=== PATIENT | female | born 1945 | race Caucasian/White ===

== ENCOUNTER 2021-07-26 13:28 | Emergency (ER) | payer MEDICARE, SELFPAY ==
--- NOTE | ~2021-07-26 | CT_ITS ---
EXAMINATION: CT brain wo con DATE: 07/26/2021 15:05 INDICATION: Head injury. Loss of consciousness. TECHNIQUE: Computed tomography (CT) of the head was performed without intravenous contrast. The mA wa s adjusted according to patient size. Iterative reconstruction technique was employed. The dose-lengt h product was 605.33 mGy-cm. COMPARISON: None FINDINGS: There is no intracranial hemorrhage, acute infarction, or abnormal intracranial mass lesion . There are scattered areas of low attenuation in the cerebral white matter, which is within normal l imits for the patient's age. The ventricles are normal in size. The paranasal sinuses are clear. The orbits are normal. The mastoid air cells are normal. IMPRESSION: 1. Normal aging brain. Reviewed, dictated and finalized at location A. SSMENT RN IMPRESSION: 1. Normal aging brain.
--- NOTE | ~2021-07-26 | CT_ITS ---
EXAMINATION: CT abdomen pelvis w con DATE: 07/26/2021 15:05 INDICATION: Fall. Loss of consciousness. TECHNIQUE: Computed tomography (CT) of the abdomen and pelvis was performed with 100 cc Omnipaque 350 intravenous contrast. Automated exposure control and iterative reconstruction technique were employe d. Exam dose: 737.30 mGy-cm total exam DLP. COMPARISON: None. FINDINGS: Patchy atelectasis and/or fibrotic change throughout the lower lung zones. Normal heart size. No pericardial or pleural effusion. Hepatic steatosis. 11 mm lateral segment left hepatic cyst. Much smaller lateral segment left hepatic cyst is noted as well. The gallbladder is absent which likely accounts for mild prominence of the bile ducts. 5 mm upper pole right renal cyst. Pinpoint nonobstructing lower pole right renal calculus. No other urinary tract calculus or hydrouret eronephrosis is detected. The urinary bladder is unremarkable. Status post hysterectomy. There is calcification but no aneurysm of the abdominal aorta. No intraperitoneal or retroperitoneal or pelvic mass lesion or adenopathy or ascites is detected. Status post gastric bypass surgery. No bowel obstruction, bowel wall thickening, pneumatosis or intraperitoneal free air is evident. Small fat-containing umbilical hernia. Bilateral hip osteoarthritis. Severe degenerative disease at T12-L1 and L1-L2. Fusion at the L5-S1 interspace. IMPRESSION: Left hepatic cysts, 5 mm upper pole right renal cyst Pinpoint obstructing lower pole right renal calculus Status post cholecystectomy Status post gastric bypass surgery Status post hysterectomy Reviewed, dictated and finalized at Location A. Reviewed, dictated and finalized at location B. L EXAMINER
--- NOTE | ~2021-07-26 | CT_ITS ---
EXAMINATION: CT cervical spine wo con DATE: 07/26/2021 15:06 INDICATION: Head injury. TECHNIQUE: Computed tomography (CT) of the cervical spine was performed without intravenous contrast. Automated exposure control and iterative reconstruction technique were employed. The dose-length pro duct was 200.15 mGy-cm. COMPARISON: None FINDINGS: The visualized portions of the lung apices demonstrate groundglass opacities and septal thi ckening and areas of air trapping, likely chronic lung disease. There is 7 degrees levocurvature of c ervical spine. Vertebral body heights are normal. There is severely decreased disc height from C3-C4 through C6-C7. The following disc levels are specifically discussed: C2-C3: There is no uncovertebral joint osteoarthritis. There is moderate right and severe left facet joint osteoarthritis. There is mild left neural foraminal stenosis. There is no central canal stenosi s. C3-C4: There is severe bilateral uncovertebral joint osteoarthritis. There is severe bilateral facet joint osteoarthritis. There is mild bilateral neural foraminal stenosis. There is mild central canal stenosis. C4-C5: There is severe bilateral uncovertebral joint osteoarthritis. There is severe bilateral facet joint osteoarthritis. There is moderate right and mild left neural foraminal stenosis. There is mild central canal stenosis. C5-C6: There is severe bilateral uncovertebral joint osteoarthritis. There is severe right and modera te left facet joint osteoarthritis. There is mild lateral neural foraminal stenosis. There is mild ce ntral canal stenosis. C6-C7: There is severe bilateral uncovertebral joint osteoarthritis. There is mild bilateral facet noah int osteoarthritis. There is moderate right and mild left neural foraminal stenosis. There is mild ce ntral canal stenosis. C7-T1: There is no uncovertebral joint osteoarthritis. There is severe bilateral facet joint osteoart hritis. There is mild bilateral neural foraminal stenosis. There is no central canal stenosis. IMPRESSION: 1. No fracture. 2. Severe cervical spondylosis. Reviewed, dictated and finalized at location A. CAL STAFF SPECIALIST
--- NOTE | ~2021-07-26 | XR_ITS ---
XR sacrum coccyx min 2V DATE: 07/26/2021 15:26 INDICATION: Fall. Tailbone pain. TECHNIQUE: AP, angled AP and lateral views COMPARISON: 07/26/2021 CT abdomen pelvis FINDINGS: There is fusion at the L5-S1 disc space. Diffuse osteopenia. No sacral or coccygeal fracture or bone destruction is detected. Bilateral hip osteoarthritis. IMPRESSION: No sacral or coccygeal fracture Osteopenia Bilateral hip osteophytes Fusion at L5-S1 disc space Reviewed, dictated and finalized at location B. AG STITCHER
--- NOTE | ~2021-07-26 | XR_ITS ---
XR chest 2V 07/26/2021 15:26 Indication: Chest pain Procedure: 2 view chest Comparison: No prior studies for comparison. Findings: There are interstitial changes in the lung bases, likely interstitial fibrosis. Heart size normal. No acute focal pneumonia, edema, pleural effusion or pneumothorax. No acute osseous abnormali ty. Impression: 1: Coarse interstitial changes of the lung bases are likely secondary to chronic fibrosis. Reviewed, dictated and finalized at location A. RVISOR RESIDENTIAL Impression: 1: Coarse interstitial changes of the lung bases are likely secondary to chroni c fibrosis.
--- NOTE | ~2021-07-26 | XR_ITS ---
XR shoulder LT min 2V DATE: 07/26/2021 15:25 INDICATION: Fall in shower. Left neck and shoulder pain TECHNIQUE: 4 views COMPARISON: None FINDINGS: There is diffuse osteopenia. No fracture or dislocation, periosteal reaction or bone destruction or abnormal soft tissue calcifica tion of the left shoulder. Mild glenohumeral osteoarthritis. Degenerative spurring of the thoracic spine. IMPRESSION: Osteopenia Mild left glenohumeral osteoarthritis No fracture or dislocation of left shoulder Reviewed, dictated and finalized at location B. ER INFORMATION SPECIALIST
[2021-07-26 13:32] VITALS: BP 111/90; PULSE 81; RESP 20; TEMP 36.6; O2SAT 98
[2021-07-26 14:29] LABS: Basophils Absolute Auto 0.1 K/mm3 (0.0-0.1); Basophils Percent Auto 0.7 % (0.2-1.2); Eosinophils Absolute Auto 0.1 K/mm3 (0-0.3); Eosinophils Percent Auto 1.8 % (0-4.4); Hematocrit 39.2 % (37.0-47.0); Hemoglobin 13.5 g/dL (12.0-15.0); Immature Granulocyte Absolute 0.02 K/mm3 (0.00-0.031); Immature Granulocyte Percent A 0.3 % (0-0.5); Lymphocytes Absolute Auto 2.67 K/mm3 (0.9-3.2); Mean Corpuscular HGB Conc 34.4 g/dl (32-36); Mean Corpuscular Hemoglobin 33.3 pg (26-34); Mean Corpuscular Volume 96.8 fl (80-100); Monocytes Absolute Auto 0.5 K/mm3 (0.1-0.6); Monocytes Percent Auto 6.5 % (2.6-8.5); Neutrophils Absolute Auto 3.9 K/mm3 (1.3-6.7); Neutrophils Percent Auto 53.7 % (45.5-73.1); Platelet Count Result 156 k/mm3 (150-375); Red Blood Count 4.05 M/mm3 (4.2-5.4); Red Cell Distribution Width 12.2 % (11.5-14.5); White Blood Count 7.2 K/mm3 (4.5-10.0)
[2021-07-26 14:40] LABS: Alanine Aminotransferase 25 U/L (4-35); Albumin Level 4.3 g/dL (3.5-5.1); Alkaline Phosphatase 128 U/L (38-126); Anion Gap 8 mmol/L (8-16); Aspartate Amino Transferase 32 U/L (14-36); Bilirubin,Total 0.7 mg/dL (0.2-1.3); Blood Urea Nitrogen 15 mg/dL (7-17); Calcium 9.2 mg/dL (8.4-10.2); Carbon Dioxide 26 mmol/L (22-30); Chloride 101 mmol/L (98-107); Estimated CRCL calculation 67 ml/min; Estimated Glomerular Filt Rate > 60; Glucose 89 mg/dL (65-110); Sodium 135 mmol/L (137-145)
--- NOTE | 2021-07-26 15:42 | ED.GENADULT ---
HPI - General Adult General Chief complaint: Fall Stated complaint: Fall, Headache Time Seen by Provider: 07/26/21 13:48 Source: RN notes reviewed History of Present Illness HPI narrative: Patient presents emergency department from home for fall. Patient states last night she was at a friend's house when she gone to the restroom she states in the bathroom she had a large rock that she slipped out and she fell she states she landed into the bathtub pulling down the shower curtain and struck her head she states that she is unsure if she lost consciousness she states since that time she had left posterior head pain as well as pain all down the left side of her body in her left shoulder and her left lower back into her coccyx states she has been able to get up and ambulate she denies any vision changes numbness or tingling in extremities chest pain shortness of breath abdominal pain nausea vomiting or any other symptom Related Data Allergies Allergy/AdvReac Type Severity Reaction Status Date / Time codeine Allergy Seizure Verified 07/26/21 13:47 Sulfa (Sulfonamide Allergy Rash Verified 07/26/21 13:47 Antibiotics) Review of Systems Review of Systems: Gen.: Denies fevers or chills Eyes: Denies eye pain or visual change ENT: Denies congestion Respiratory: Denies shortness of breath or cough CV: Denies chest pain or palpitations GI: Denies abdominal pain nausea, emesis or diarrhea Musculoskeletal: See HPI Neuro: Reports headache and possible loss of consciousness Skin: Denies rash Except as documented, all other systems reviewed and negative [facility] Past Medical History Medical History (Updated 07/26/21 @ 15:46 by Quinton Gentile DO) Patient denies significant medical history Social History Social History (Updated 07/26/21 @ 15:43 by Quinton Gentile DO) Smoking status: Never smoker Exam Narrative: APPEARANCE: No acute distress, nontoxic, resting in bed EYES: EOMI, PERRL HEENT: Normocephalic, tender palpation of the left posterior scalp with mild swelling present no facial tenderness, nares patent Neck supple no midline tender palpation mild tenderness palpation left paravertebral muscles C5-7 RESPIRATORY: No respiratory distress Clear to auscultation bilaterally with no rhonchi wheezing or rales. CARDIOVASCULAR: Regular rate and rhythm without murmurs rubs or gallops. ABDOMINAL: Soft, nondistended tender palpation left upper quadrant left lower quadrant no tenderness right upper quadrant right lower quadrant no rebound or guarding MUSCULOSKELETAl: Moves all extremities. No clubbing, cyanosis or edema. Tender palpation of the left anterior and lateral shoulder full range of motion without pain no tenderness left elbow or wrist neurovascular intact Back no midline thoracic lumbar tenderness palpation tender palpation of the left paravertebral muscles L2-5/tenderness over the coccyx region NEURO: Awake and alert x 4. Following commands, speech normal, no focal deficits SKIN:: Warm, dry. No rashes lesions or abrasions PSYCHIATRIC: Normal affect/mood, Course Course Emergency Course: Discussed with patient results of workup and diagnosis. Discussed need for follow-up with primary care, proper use of medication, and reasons to return to the emergency department. Patient understands and agrees to current treatment plan Vital Signs Vital signs: Vital Signs Temperature 97.8 F 07/26/21 13:32 Pulse Rate 81 07/26/21 13:32 Respiratory Rate 20 07/26/21 13:32 Blood Pressure 111/90 07/26/21 13:32 Pulse Oximetry 98 07/26/21 13:32 Temperature 97.8 F 07/26/21 13:32 Pulse Rate 81 07/26/21 13:32 Respiratory Rate 20 07/26/21 13:32 Blood Pressure 111/90 07/26/21 13:32 Pulse Oximetry 98 07/26/21 13:32 Medical Decision Making Vital Signs Vital Signs: Vital Signs Temperature 97.8 F 07/26/21 13:32 Pulse Rate 81 07/26/21 13:32 Respiratory Rate 20 07/26/21 13:32 Blood Pressure 111/90 12
[2021-07-26 16:00] VITALS: BP 120/80; PULSE 77; RESP 19; O2SAT 97
== END 2021-07-26 16:00 | disposition home or self-care (01) ==
PROVIDERS: Emergency Provider Emergency Medicine
DX: S00.93XA Contusion of unspecified part of head, initial encounter (principal); S40.012A Contusion of left shoulder, initial encounter; S30.0XXA Contusion of lower back and pelvis, initial encounter; Z98.84 Bariatric surgery status; M47.812 Spondylosis without myelopathy or radiculopathy, cervical region; M19.012 Primary osteoarthritis, left shoulder; W01.198A Fall on same level from slipping, tripping and stumbling with subsequent striking against other object, initial encounter
CPT/HCPCS: 36415; 70450; 71046; 72125; 72220; 73030; 74177; 80053; 85025; 99284; Q9967

== ENCOUNTER 2022-09-08 17:57 | Emergency (ER) | payer MEDICARE, SELFPAY ==
[2022-09-08] VITALS (8 sets, daily range): BP systolic 182–205; BP diastolic 69–96; PULSE 57–66; RESP 12–21; TEMP 36.7; O2SAT 96–100
--- NOTE | ~2022-09-08 | CT_ITS ---
Non-contrast Head CT History: Vertigo, headache COMPARISON: 07/26/2021 Technique: Axial non-contrast imaging of the brain was performed. Dose reduction technique was used on this scan by utilizing automated exposure control and iterative reconstruction technique. The dose -length product (DLP) was 529.67 mGy-cm. Findings: There is no evidence of intracranial hemorrhage, mass lesion, or acute infarct. Brain par enchyma appears normal. The ventricles and subarachnoid spaces are normal in size. The calvarium ap pears normal. The visualized paranasal sinuses and mastoid air cells are clear. Impression: No significant abnormality seen. Reviewed, dictated and finalized at location . RVISOR MALTED MILK Impression: No significant abnormality seen.
--- NOTE | 2022-09-08 18:02 | ED.DIZZY ---
HPI - Dizziness General Chief Complaint: Dizziness Stated Complaint: NAUSEA/VOMITING/DIZZINESS X 6 HOURS Source: patient Mode of arrival: EMS Limitations: no limitations History of Present Illness HPI Narrative: Patient is a 77 y/o female who presents to the ED via EMS with report of dizziness. Patient reports she received the shingles vaccine yesterday and felt slight dizziness temporarily afterwards. She developed dizziness again around 12pm today which has been present since then. She describes the dizziness as though the room is spinning. Dizziness worse with opening eyes and laying flat. She also reports having nausea and vomiting associated with the dizziness. She did have a headache earlier which was resolved with Aleve. Denies any vision changes. Denies focal weakness. Denies chest pain, difficulty breathing, abdominal pain, ear pain or ringing, previous history of similar dizziness. Denies any fever, rash, itching after receiving vaccine. Related Data Allergies Allergy/AdvReac Type Severity Reaction Status Date / Time codeine Allergy Seizure Verified 09/08/22 18:04 Sulfa (Sulfonamide Allergy Rash Verified 09/08/22 18:04 Antibiotics) Review of Systems Review of Systems: CONSTITUTIONAL: Denies fever, chills, or sweats. EYES: Denies visual changes. ENT: Denies rhinorrhea, congestion, sore throat, tinnitus, or otalgia. CARDIOVASCULAR: Denies chest pain. RESPIRATORY: Denies dyspnea. GASTROINTESTINAL: See HPI. GENITOURINARY: Denies dysuria or hematuria. SKIN: Denies rash or itching. MUSCULOSKELETAL: Denies back pain, joint pain, or myalgia. NEUROLOGIC: See HPI. All systems reviewed & are unremarkable except as noted in HPI and below PMFSH Past Medical History Medical History (Updated 09/08/22 @ 23:35 by Clair Jack PA-C) HTN (hypertension) Surgical History Surgical History (Updated 09/08/22 @ 18:03 by Clair Jack PA-C) No pertinent past surgical history Social History Social History Smoking status: Never smoker Exam Narrative: GENERAL: Mildly ill appearing, well-nourished, non-toxic, in mild acute distress due to dizziness and vomiting. HEAD: Normocephalic, atraumatic. EYES: PERRL/EOMI, conjunctivae clear bilaterally. No nystagmus. EARS: L TM clear, with good light reflex. No erythema or bulging. R cerumen impaction. NECK: Supple. No adenopathy, no masses. RESPIRATORY: Airway patent, respirations nonlabored. Clear to auscultation bilaterally, no rales, rhonchi, wheezing. CARDIOVASCULAR: Regular rate and rhythm without murmurs, rubs, or gallops. Radial pulses 2+ and equal bilaterally. ABDOMINAL: Soft, nontender, nondistended, no hepatosplenomegaly. Normoactive BS. MUSCULOSKELETAL: Moves all extremities. Strength/ROM intact without gross deformities or TTP. No edema. No calf tenderness. SKIN: Warm, dry, normal color. No rashes. NEURO: A&O X3. Speech clear. Follows commands. CN II-XII intact. Sensation grossly intact. No ataxic movements. Strength 5/5 in upper and lower extremities bilaterally. No pronator drift. Equal custom dressmaker strength bilaterally. PSYCHIATRIC: Appropriate mood and affect. Normal interaction. Course Vital Signs Vital signs: Vital Signs Temperature 98.1 F 09/08/22 17:57 Pulse Rate 63 09/08/22 17:57 Respiratory Rate 20 09/08/22 17:57 Blood Pressure 182/69 H 09/08/22 17:57 Pulse Oximetry 100 09/08/22 17:57 Oxygen Delivery Room Air 09/08/22 17:57 Temperature 98.1 F 09/08/22 17:57 Pulse Rate 66 09/08/22 23:25 Respiratory Rate 14 09/08/22 23:25 Blood Pressure 189/96 H 09/08/22 23:25 Pulse Oximetry 96 09/08/22 23:25 Oxygen Delivery Room Air 09/08/22 17:57 MDM - Dizziness MDM Narrative Medical decision making narrative: Patient presented to ED with several hour onset of room spinning dizziness. Patient actively vomiting upon my initial evaluation. Mildly hyper
--- NOTE | 2022-09-08 18:03 | ECG_ITS ---
Measurements Intervals [place] Rate: 60 P: 14 IN: 152 QRS: -20 QRSD: 98 T: 13 QT: 413 QTc: 415 Interpretive Statements SINUS RHYTHM LEFT VENTRICULAR HYPERTROPHY AND ST-T CHANGE [VOLTAGE CRITERIA PLUS ST/T ABNORMALITY] ABNORMAL ECG NO PREVIOUS ECG AVAILABLE FOR COMPARISON Electronically Signed On 09-09-2022 11:59:08 NURSE STAFF [facility] by Baron Ahmadi M.D.
[2022-09-08] MEDS: ONDANSETRON INJ 4 MG/2 ML VIAL IV PUSH (19:00)
[2022-09-08] MEDS: SODIUM CHLORIDE 0.9% IV 1,000 ML 999 ML IV CONT (19:00)
[2022-09-08] MEDS: MECLIZINE HCL 25 MG TABLET PO (19:27)
[2022-09-08 20:19] LABS: Basophils Absolute Auto 0.1 K/mm3 (0.0-0.1); Basophils Percent Auto 0.6 % (0.2-1.2); Eosinophils Percent Auto 0.4 % (0-4.4); Hematocrit 36.7 % (37.0-47.0); Hemoglobin 12.7 g/dL (12.0-15.0); Immature Granulocyte Absolute 0.03 K/mm3 (0.00-0.031); Immature Granulocyte Percent A 0.4 % (0-0.5); Immature Platelet Fraction Pct 14.1 % (0.9-11.2); Lymphocytes Absolute Auto 1.25 K/mm3 (0.9-3.2); Lymphocytes Percent Auto 14.9 % (18.3-44.2); Mean Corpuscular HGB Conc 34.6 g/dl (32-36); Mean Corpuscular Hemoglobin 33.7 pg (26-34); Mean Corpuscular Volume 97.3 fl (80-100); Monocytes Absolute Auto 0.3 K/mm3 (0.1-0.6); Monocytes Percent Auto 3.1 % (2.6-8.5); Neutrophils Absolute Auto 6.8 K/mm3 (1.3-6.7); Neutrophils Percent Auto 80.6 % (45.5-73.1); Platelet Count Result 108 k/mm3 (150-375); Red Blood Count 3.77 M/mm3 (4.2-5.4); Red Cell Distribution Width 12.2 % (11.5-14.5); White Blood Count 8.4 K/mm3 (4.5-10.0)
[2022-09-08 20:28] LABS: Alanine Aminotransferase 21 U/L (6-35); Albumin Level 3.5 g/dL (3.5-5.1); Alkaline Phosphatase 112 U/L (38-126); Anion Gap 3 mmol/L (8-16); Aspartate Amino Transferase 24 U/L (14-36); Bilirubin,Total 0.8 mg/dL (0.2-1.3); Blood Urea Nitrogen 20 mg/dL (7-17); Calcium 8.4 mg/dL (8.4-10.2); Carbon Dioxide 28 mmol/L (22-30); Chloride 109 mmol/L (98-107); Estimated CRCL calculation 77 ml/min; Estimated Glomerular Filt Rate > 60; Glucose 144 mg/dL (65-110); Potassium 3.7 mmol/L (3.4-5.0); Sodium 140 mmol/L (137-145)
[2022-09-08 20:32] LABS: INR 1.1; Prothrombin Time 13.9 Seconds (11.1-14.7)
[2022-09-08 20:33] LABS: Partial Thromboplastin Time 55.1 SECONDS (22.3-36.8)
[2022-09-08 20:39] LABS: Troponin I < 0.012 ng/mL (0.000-0.034)
[2022-09-08 21:23] LABS: Appearance Urine Clear (Clear); Bilirubin Urine Negative (Negative); Blood Urine Trace-intact (Negative); Color Urine Yellow (Yellow); Glucose Urine UA Trace mg/dL (Negative); Ketones Urine 1+ mg/dL (Negative); Leukocyte Esterase Ur Negative LEU/UL (Negative); Nitrate Urine Negative (Negative); Protein Urine Negative (Negative); Specific Grav Ur 1.025 (1.001-1.035)
[2022-09-08 21:26] LABS: Squamous Epithelial Cell Urine Rare /hpf (Few); WBC Urine 0-3 /hpf
[2022-09-08 21:30] LABS: Add Urine Microscopic? YES
[2022-09-08] MEDS: CARBAMIDE PEROXIDE 6.5% OT SOLN 15 ML BTL 5 DROP RIGHT EAR (22:29)
== END 2022-09-09 00:03 | disposition home or self-care (01) ==
PROVIDERS: Emergency Provider Physician Assistant
DX: H81.10 Benign paroxysmal vertigo, unspecified ear (principal); H61.21 Impacted cerumen, right ear; I10 Essential (primary) hypertension; I51.7 Cardiomegaly
CPT/HCPCS: 36415; 70450; 80053; 81001; 84484; 85025; 85055; 85610; 85730; 93005; 96361; 96374; 99284; A9270; J2405; J7030

== ENCOUNTER 2022-12-29 16:48 | Observation (INO) | payer MEDICARE, SELFPAY ==
[2022-12-29] VITALS (10 sets, daily range): BP systolic 143–201; BP diastolic 60–98; PULSE 51–62; RESP 12–20; TEMP 36.5; O2SAT 95–97; BMI 28.7
--- NOTE | ~2022-12-29 | CT_ITS ---
EXAMINATION: CTA BRAIN/CAROTID DATE: 12/29/2022 18:29 INDICATION: Headache, dizziness, nausea and vomiting TECHNIQUE: Computed tomographic angiography (CTA) of the head and neck was performed with 100 mL Omni paque-350 intravenous contrast. Multiplanar reconstructions and maximum intensity projection 3D-recon structions of the carotid arteries and of the intracranial arteries were created by the technologist on a separate workstation. Precontrast CT of the head was also obtained. Automated exposure control and iterative reconstruction technique were employed.The dose-length product was 1587.43 mGy-cm. COMPARISON: 09/08/2022 FINDINGS: Carotid arteries: Thoracic arch is normal in caliber with small amount of nonhemodynamically significant atheroscleroti c plaque. No dissection. Normal variant origin of the left vertebral artery which arises directly fro m the aortic arch. There is atherosclerotic plaque at both the left and right carotid bulb with 0% st enosis of the both the right and left carotid bulbs relative to normal distal artery lumen diameter ( NASCET criteria). Cervical soft tissues are unremarkable. Mosaic attenuation and linearopacities in t he visualized bilateral upper lung zones likely representing atelectasis related to partial expirator y phase of imaging. Head: No acute intracranial hemorrhage, acute infarction or abnormal extra axial fluid collection. There is mild scattered white matter hypoattenuation consistent with chronic small vessel ischemic disease. S ymmetric prominence of the sulci consistent with mild age-appropriate diffuse cerebral volume loss. V entricles are normal and symmetric. No mass/mass effect. No abnormally enhancing brain lesions identi fied on the post contrast imaging. Mild mucosal thickening the right sphenoid sinus. The orbits and m astoid air cells are normal. Intracranial arteries Atherosclerotic plaque without hemodynamically significant stenosis at the bilateral carotid siphons. The left vertebral artery is dominant. There is segmental occlusion of the left vertebral artery bet ween the patent left posterior cerebral artery and the branch supplying the anterior spinal artery, t he latter likely supplied via reverse flow from the smaller caliber right vertebral artery. There is multifocal mild, <50% stenosis along the basilar artery. The bilateral A1 segments are patent along w ith a patent anterior to indicating artery. The bilateral P1 segments are patent along with a relativ rosa large caliber right posterior communicating artery which likely provides additional collateral fl ow from the right anterior to the posterior circulation. There are no aneurysms identified. Cerebral arterial arborization appears symmetric. IMPRESSION: 1. Small of atherosclerotic plaque with 0% stenosis of the both the right and left carotid bulbs rela tive to normal distal artery lumen diameter (NASCET criteria). 2. Age-related changes including mild diffuse volume loss and mild scattered white matter hypoattenua tion consistent with chronic small vessel ischemic disease. No acute intracranial process. 3. Segmental occlusion of the dominant left vertebral artery with small right vertebral artery supply ing the basilar artery where there is additional mild multifocal stenosis. There is however a relativ rosa large caliber right posterior communicating artery which likely supplies collateral flow from the right anterior circulation to the posterior circulation. Reviewed, dictated and finalized at location A. IMPRESSION: 1. Small of atherosclerotic plaque with 0% stenosis of the both the right and l eft carotid bulbs relative to normal distal artery lumen diameter (NASCET crite siria). 2. Age-related changes including mild diffuse volume loss and mild scattered wh ite matter hypoat
--- NOTE | ~2022-12-29 | MR_ITS ---
MRI of the brain Clinical History: Vertigo, vertebral artery occlusion on CTA Technique: Axial and sagittal T1-weighted images were acquired. These were followed by axial T2-weigh sabrina, diffusion weighted, gradient, and FLAIR images. Following intravenous administration of 14 cc Mu ltiHance gadolinium, T1-weighted fat-sat imaging was performed in the axial and coronal planes. Findings: There is no acute infarct, intracranial hemorrhage, or mass lesion. There is mild chronic m icrovascular ischemic change in the periventricular white matter and verónica. Ventricles and subarachnoid spaces are mildly dilated. Orbits are unremarkable. Paranasal sinuses and mastoid air cells are clear. Major intracranial flow voids appear intact. Sagittal midline structures are intact. No abnormal postcontrast enhancement identified. IMPRESSION: No acute infarct, intracranial hemorrhage, or mass lesion. Mild chronic microvascular ischemic changes and mild generalized atrophy. Reviewed, dictated and finalized at [facility].
--- NOTE | 2022-12-29 16:50 | ECG_ITS ---
Measurements Intervals [place] Rate: 54 P: 76 WI: 154 QRS: -14 QRSD: 101 T: 20 QT: 440 QTc: 420 Interpretive Statements SINUS BRADYCARDIA VOLTAGE CRITERIA FOR LVH MINIMAL Q WAVES- HIGH LATERAL LEADS BASELINE ARTIFACT- I, II, III, AVR, AVL, AVF BORDERLINE ECG COMPARED TO ECG 09/08/2022 18:06:15 SINUS BRADYCARDIA NOW PRESENT Electronically Signed On 12-30-2022 7:53:42 CDT by Ronnell Marr D.O.
--- NOTE | 2022-12-29 17:05 | ED.DIZZY ---
HPI - Dizziness General Chief Complaint: Dizziness <JOVITA Zazueta Last Filed: 12/29/22 20:11> Stated Complaint: dizzy, weak <Ayah Ruiz PA-C - Last Filed: 12/29/22 20:11> Time Seen by Provider: 12/29/22 16:56 <JOVITA Zazueta Last Filed: 12/29/22 20:11> History of Present Illness HPI Narrative: Patient is a 77-year-old female here via EMS for evaluation of nausea, vomiting, dizziness x4 hours. Patient states the symptoms hit her all at once while she was doing laundry. She describes a room spinning sensation. She had numerous episodes of vomiting nonbloody/nonbilious emesis and retching. She denies any abdominal pain, constipation, diarrhea, chest pain, shortness of breath, fevers or chills. Unable to tolerate her home meds today. History of BPPV, was seen here in September and improved after p.o. meds. <JOVITA Zazueta Last Filed: 12/29/22 20:11> Related Data Home Medications: Home Medications Medication Instructions Recorded Confirmed bupropion HCl 150 mg 24 hr tablet, 150 mg PO DAILY 12/29/22 12/30/22 extended release duloxetine 60 mg capsule,delayed 120 mg PO DAILY 12/29/22 12/30/22 release ergocalciferol (vitamin D2) 1,250 1,250 mcg PO WEEKLY 12/29/22 12/30/22 mcg (50,000 unit) capsule gabapentin 300 mg capsule 300 mg PO QID 12/29/22 12/30/22 propranolol 120 mg capsule,24 120 mg PO DAILY 12/29/22 12/30/22 hr,extended release trazodone 50 mg tablet 50 mg PO HS 12/29/22 12/30/22 <JOVITA Zazueta Last Filed: 12/29/22 20:11> Allergies/Adverse Reactions: Allergies Allergy/AdvReac Type Severity Reaction Status Date / Time codeine Allergy Seizure Verified 09/08/22 18:04 Sulfa (Sulfonamide Allergy Rash Verified 09/08/22 18:04 Antibiotics) <Ayah Ruiz PA-C - Last Filed: 12/29/22 20:11> Review of Systems Review of Systems: Gen: Denies fevers or chills Eyes: Denies eye pain or visual change ENT: Denies congestion Respiratory: Denies shortness of breath or cough CV: Denies chest pain or palpitations GI: Reports nausea and vomiting : denies burning, urgency, frequency or hematuria Musculoskeletal: Denies back pain or muscle pain Neuro: Reports dizziness. Denies numbness, tingling, weakness or focal weakness Skin: Denies rash Except as documented, all other systems reviewed and negative <Ayah Ruiz PA-C - Last Filed: 12/29/22 20:11> [facility] Past Medical History Medical History: Medical History (Updated 12/29/22 @ 21:49 by Anisha De La Torre DO) Essential hypertension <Ayah Ruiz PA-C - Last Filed: 12/29/22 20:11> Surgical History Surgical History: Surgical History (Updated 12/29/22 @ 21:34 by Anisha De La Torre DO) No pertinent past surgical history <Ayah Ruiz PA-C - Last Filed: 12/29/22 20:11> Social History Social History: Social History Smoking status: Never smoker Alcohol intake: current Drinks per week: 7 Substance use: never Lack of Transportation: No Lack of Food: Never True Current Housing: I Have Housing Concerned About Future Housing: No Difficulty Paying Gas/Electric Bills: No Difficulty Paying for Meds: No Currently Unemployed: No Education: High School Diploma/GED Difficulty w/ Childcare or Family Care: No Spiritual care concerns: No <Ayah Ruiz PA-C - Last Filed: 12/29/22 20:11> Exam Narrative: APPEARANCE: Uncomfortable appearing, vomiting at time of assessment, diaphoretic Head: Normocephalic and atraumatic. EYES: PERRLA. there is significant bi-directaional horizontal nystagmus, non-fatiguable to the right NOSE: No nasal drainage EARS: TMs clear bilaterally. External ear normal in appearance THROAT: Oropharynx is clear. Mucous membranes are moist. NECK: Supple. No adenopathy, no masses. R
[2022-12-29] MEDS: SODIUM CHLORIDE 0.9% IV 1,000 ML 999 ML IV CONT (17:19)
[2022-12-29] MEDS: ONDANSETRON INJ 4 MG/2 ML VIAL IV PUSH (17:20)
[2022-12-29] MEDS: FAMOTIDINE 20 MG/2 ML VIAL IV PUSH (17:21)
[2022-12-29 18:08] LABS: Alanine Aminotransferase 25 U/L (6-35); Albumin Level 4.1 g/dL (3.5-5.1); Alkaline Phosphatase 112 U/L (38-126); Anion Gap 7 mmol/L (8-16); Aspartate Amino Transferase 28 U/L (14-36); Bilirubin,Total 0.7 mg/dL (0.2-1.3); Blood Urea Nitrogen 20 mg/dL (7-17); Calcium 8.5 mg/dL (8.4-10.2); Carbon Dioxide 27 mmol/L (22-30); Chloride 105 mmol/L (98-107); Estimated CRCL calculation 76 ml/min; Estimated Glomerular Filt Rate > 60; Glucose 174 mg/dL (65-110); Lipase 56 U/L (23-300); Magnesium 2.2 mg/dL (1.6-2.3); Potassium 3.7 mmol/L (3.4-5.0); Sodium 139 mmol/L (137-145)
[2022-12-29 18:19] LABS: Troponin I < 0.012 ng/mL (0.000-0.034)
[2022-12-29] MEDS: MECLIZINE HCL 25 MG TABLET PO (18:29)
--- NOTE | 2022-12-29 19:28 | PC.NURSE ---
1909 Assumed pt care from Deana Vera RN
[2022-12-29] MEDS: ASPIRIN 81 MG ENTERIC TABLET PO (20:00)
[2022-12-29] MEDS: CLOPIDOGREL BISULFATE 75 MG TABLET PO (20:02)
[2022-12-29 20:29] LABS: Basophils Percent Auto 0.3 % (0.2-1.2); Eosinophils Percent Auto 0.4 % (0-4.4); Hematocrit 39.7 % (37.0-47.0); Hemoglobin 13.4 g/dL (12.0-15.0); Immature Granulocyte Absolute 0.04 K/mm3 (0.00-0.031); Immature Granulocyte Percent A 0.4 % (0-0.5); Immature Platelet Fraction Pct 13.6 % (0.9-11.2); Lymphocytes Absolute Auto 1.35 K/mm3 (0.9-3.2); Lymphocytes Percent Auto 14.8 % (18.3-44.2); Mean Corpuscular HGB Conc 33.8 g/dl (32-36); Mean Corpuscular Hemoglobin 33.3 pg (26-34); Mean Corpuscular Volume 98.5 fl (80-100); Mean Platelet Volume 13.3 fl (7.4-10.4); Monocytes Absolute Auto 0.2 K/mm3 (0.1-0.6); Monocytes Percent Auto 2.4 % (2.6-8.5); Neutrophils Absolute Auto 7.4 K/mm3 (1.3-6.7); Neutrophils Percent Auto 81.7 % (45.5-73.1); Platelet Count Result 116 k/mm3 (150-375); Red Blood Count 4.03 M/mm3 (4.2-5.4); Red Cell Distribution Width 12.5 % (11.5-14.5); White Blood Count 9.1 K/mm3 (4.5-10.0)
--- NOTE | 2022-12-29 21:25 | PM.IMHP ---
H&P: HPI History of Present Illness Date/Time: 12/29/22 21:25 Chief Complaint: Dizziness Narrative: 77-year-old female with a past medical history of depression, vitamin-D deficiency, essential hypertension and vertigo presented to the ER with symptoms of vertigo. The patient reports that this is her 3rd episode of vertigo since September. The 1st episode was went to a your infection which she reports after she received finished her antibiotics her vertigo resolved. The 2nd episode occurred at home and she ?toughed it out? and did not come in for evaluation. She reports that today she was doing laundry and had bent down to pull close out the Nga when she stood up she became acutely dizzy with the room spinning. She had associated severe nausea and had to crawl back to her bedroom. She was having severe dry heaves because she did had not eaten anything. She states that she had not taken her blood pressure medicines or had anything to eat for the day because she did not sleep well the night before and decided to take a nap after letting her dog out this morning. She got up right before he started doing laundry. She was asymptomatic until she bent over. She denies any ear pressure or fullness. She reports that she did have some mild headache while she was in the ER for about 10-20 minutes but it resolved without intervention. She denies any recent head injury or trauma. She reports chronic gait instability due to severe peripheral neuropathy from prior chemotherapy for uterine cancer. She is wearing a brace on her right foot due to recently breaking her toes when she tripped over her dog's leash. She has subsequently walking with a walker. She denies any acute changes to her gait. She has not had difficulty with dropping things or upper extremity weakness. She has not noticed any changes in her speech. She denies any double vision. She reports some age-related vision changes that are not new. She denies having any palpitations chest pain or shortness of breath. She denies any recent viral symptoms. A CTA of the head was performed in the ER to rule out CVA. 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 However, there is relatively large caliber right posterior communicating artery which likely supplies collateral flow from the right anterior circulation to the posterior circulation. Neurology and both [facility] and at our facility was contacted by the ER provider. They felt that the patient's vascular changes were probably chronic and did not recommend intervention beyond monitoring and admission for MRI and symptomatic treatment. Patient has been admitted as observation for further evaluation of possible stroke including MRI of the brain and brainstem with and without contrast. The patient received Zofran, meclizine and a L of fluids in the ER. The decision was made to admit the patient for observation and evaluation by Neurology as well as MRI to rule out CVA. By the time the patient arrived to the medical floor her symptoms had resolved. The patient reports that she had gastric bypass in 2012. She reports that her surgeon moved shortly after her bypass procedure. She never followed up after that with a new surgeon. She does not take any supplements arm vitamins following her surgery. Review of Systems Review of Systems: 12 systems were reviewed with pertinent positives and negatives per HPI. Except as documented in the HPI, all other systems were reviewed and are negative. [facility] Past Medical History Medical History (Updated 12/30/22 @ 05:13 by Anisha De La Torre, DO) Depression with anxiety Diet-controlled type 2 diabetes mellitus Essential hypertension Hepatic steatosis Leiomyosarcoma of uterus (2014) Obstructive sleep apnea Peripheral neuropathy Surg
--- NOTE | 2022-12-29 22:23 | PC.NURSE ---
This patient, Anahi Stein, was admitted to Medical Room 349-01. Patient/family oriented to hospital policies and general routines including ID bracelet, bed and alarms, visiting hours, pain management, procedures, bathroom and other care routines, personal items, smoking policy, room service/diet, and visiting hours. Information on how to activate the Rapid Response Team has been discussed. Patient/Family are encouraged to report perceived risks to care and to ask questions if they do not understand what they are told or what they should do.
[2022-12-30] VITALS (10 sets, daily range): BP systolic 134–146; BP diastolic 61–69; PULSE 53–72; RESP 16–18; TEMP 36.2–36.8; O2SAT 95–96
--- NOTE | 2022-12-30 | ECHO_ITS ---
Patient Info Name: Anahi Stein Age: 77 years : 1945 Gender: Female Ht: 63 in Wt: 162 lbs BSA: 1.83 m2 HR: 65 bpm BP: 134 / 69 mmHg Technical Quality: Good Exam Date: 12/30/2022 11:22 AM Exam Location: [facility] Patient Status: Outpatient Admit Date: 12/29/2022 Staff Ordering Physician: Yousuf Colon MD [employer] Engineer: Barb Diaz RDCS Attending Provider: Anisha De La Torre DO Exam Type: CA echo doppler color flow Study Info Indications R42 - Dizziness and giddiness Complete two-dimensional, color flow and Doppler transthoracic echocardiogram is performed. Summary 1. Complete two-dimensional, color flow and Doppler transthoracic echocardiogram is performed. 2. Left ventricular chamber dimension is normal. 3. Left ventricular systolic function is normal, estimated at 60-65%. 4. The left ventricular diastolic function is abnormal. 5. E/e' 10 is mildly elevated. 6. Left atrial chamber dimension is mildly enlarged. 7. There is mild aortic valve sclerosis. 8. There is trace mitral valve regurgitation. 9. There is mild to moderate tricuspid valve regurgitation. 10. No pulmonary hypertension, estimated pulmonary arterial systolic pressure is 37 mmHg. 11. There is trace pulmonic regurgitation. Left Ventricle E/e' 10 is mildly elevated. Left ventricular chamber dimension is normal. Left ventricular systolic function is normal, estimated at 60-65%. The left ventricular diastolic function is abnormal. Right Ventricle Right ventricular chamber dimension is normal. Right ventricular systolic function is normal. Left Atria Left atrial chamber dimension is mildly enlarged. Right Atria Right atrial chamber dimension is normal. Aortic Valve The aortic valve is trileaflet. There is mild aortic valve sclerosis. There is no aortic valve stenosis. There is no aortic valve regurgitation. Pulmonic Valve There is trace pulmonic regurgitation. Mitral Valve There is no mitral valve stenosis. There is trace mitral valve regurgitation. Tricuspid Valve There is mild to moderate tricuspid valve regurgitation. No pulmonary hypertension, estimated pulmonary arterial systolic pressure is 37 mmHg. Pericardium/Pleural There is no pericardial effusion. Inferior Vena Cava Normal inferior vena cava with >50% collapse upon inspiration consistent with normal right atrial pressure, 5 mmHg. Aorta The aortic root size at the sinus of Valsalva is normal. Left Ventricular Outflow Tract Name Value Normal LVOT 2D LVOT Diameter 1.9 cm LVOT Doppler LVOT Peak Gradient 4 mmHg LVOT Mean Gradient 2 mmHg LVOT VTI 21 cm LVOT VTI/AV VTI Ratio 0.8 LVOT Stroke Volume 59 ml LVOT CO 3.8 l/min LVOT CI 2.1 l/min/m2 Pulmonic Valve Name Value Normal PV Doppler
[2022-12-30 06:08] LABS: Anion Gap 6 mmol/L (8-16); Blood Urea Nitrogen 16 mg/dL (7-17); Calcium 8.4 mg/dL (8.4-10.2); Carbon Dioxide 27 mmol/L (22-30); Chloride 106 mmol/L (98-107); Estimated CRCL calculation 77 ml/min; Estimated Glomerular Filt Rate > 60; Glucose 87 mg/dL (65-110); Potassium 3.8 mmol/L (3.4-5.0); Sodium 139 mmol/L (137-145)
[2022-12-30 06:09] LABS: Hematocrit 36.2 % (37.0-47.0); Hemoglobin 12.3 g/dL (12.0-15.0); Immature Platelet Fraction Pct 13.4 % (0.9-11.2); Mean Corpuscular Hemoglobin 32.8 pg (26-34); Mean Corpuscular Volume 96.5 fl (80-100); Mean Platelet Volume 13.4 fl (7.4-10.4); Platelet Count Result 132 k/mm3 (150-375); Red Blood Count 3.75 M/mm3 (4.2-5.4); Red Cell Distribution Width 12.7 % (11.5-14.5); White Blood Count 7.1 K/mm3 (4.5-10.0)
[2022-12-30 07:07] LABS: Thyroid Stimulating Hormone Reflex 0.992 uIU/mL (0.465-4.68)
[2022-12-30 07:12] LABS: Folic Acid 6.6 ng/mL (2.76->20)
[2022-12-30 07:14] LABS: Hemoglobin A1C 5.2 % (<5.7)
[2022-12-30 07:40] LABS: Cholesterol 154 mg/dL (0-200); HDL Direct 45 mg/dL; Triglycerides 119 mg/dL (<150)
[2022-12-30 07:51] LABS: LDL Cholesterol Direct 87 mg/dL
--- NOTE | 2022-12-30 09:07 | PC.NURSE ---
Patient states she takes all 4 gabapentin pills at night. Patient states her doctor used to prescribe it 4 times a day, but due to patient falling often her doctor told her to take all the pills before bedtime.
[2022-12-30] MEDS: THIAMINE HCL INJ 100 MG, FOLIC ACID INJ 1 MG, MAGNESIUM SULFATE INJ 1 GM in LACTATED RI... IV CONT ×2 (09:09→19:11)
[2022-12-30] MEDS: DULoxetine HCL 60 MG CAPSULE.DR 120 MG PO (09:09)
[2022-12-30] MEDS: buPROPion HCL XL (24 HR) 150 MG TABCR PO (09:09)
[2022-12-30] MEDS: CLOPIDOGREL BISULFATE 75 MG TABLET PO (09:09)
[2022-12-30] MEDS: MECLIZINE HCL 25 MG TABLET PO (09:12)
[2022-12-30] MEDS: CYANOCOBALAMIN INJ 1,000 MCG/ML VIAL 1000 MCG IM (09:12)
--- NOTE | 2022-12-30 09:17 | PCOTNOTE ---
Attempted OT evaluation. Patient declined due to being too dizzy. Will continue to attempt.
--- NOTE | 2022-12-30 09:23 | PCPTNOTE ---
Attempted PT evaluation. Patient declined due to being too dizzy. Will continue to attempt.
--- NOTE | 2022-12-30 10:11 | PCOTNOTE ---
Attempted OT evaluation after receiving medication. She continues to decline any/all activity despite education on the benefits of therapy.
--- NOTE | 2022-12-30 10:15 | PCPTNOTE ---
Attempted PT evaluation after receiving medication. She declines therapy this date. Will continue to attempt.
--- NOTE | 2022-12-30 12:48 | WPDPN ---
Progress Note: A&P Assessment and Plan (1) Vertebral basilar insufficiency: Code(s): G45.0 - Vertebro-basilar artery syndrome Status: Acute (2) Vertigo: Code(s): R42 - Dizziness and giddiness Status: Acute (3) HTN (hypertension): Qualifiers: Hypertension type: unspecified Qualified Code(s): I10 - Essential (primary) hypertension Code(s): I10 - Essential (primary) hypertension Status: Acute (4) Hyperglycemia: Code(s): R73.9 - Hyperglycemia, unspecified Status: Acute (5) Bradycardia, drug induced: Code(s): R00.1 - Bradycardia, unspecified; T50.905A - Adverse effect of unspecified drugs, medicaments and biological substances, initial encounter Status: Acute (6) Thrombocytopenia: Code(s): D69.6 - Thrombocytopenia, unspecified Status: Acute Plan The patient is having intractable vertigo in this is likely secondary to central cause given the patient's vertebral artery insufficiency. She has been admitted to the hospital for observation and further evaluation to rule out acute CVA due to her vertebral artery insufficiency. She was started on Plavix in the ER this will be continued. Neurology has been consulted. She will receive p.r.n. medications for nausea and vertigo. Will check a lipid panel with a.m. labs. She does have a history of essential hypertension. She was seen in the ER in September for vertigo symptoms at that time and had markedly uncontrolled blood pressures documented ranging between 180 and 200 systolic. Her blood pressures are comparable today. This is likely multifactorial due to her essential hypertension complicated by the patient not being Eloise take her home antihypertensives due to vertigo and vomiting. However, there is likely some secondary hypertension due to her possible CVA and vertebral insufficiency. Will allow for permissive hypertension due to possibility of CVA. However will provide hydralazine as needed for systolic blood pressures greater than 180. His sirs also possibility of patient having symptoms due to hypertensive urgency. Will continue to hold the patient's home propranolol due to bradycardia. Since the patient is bradycardic and she has not had her blood pressure medications in 24 hours. Addendum: Repeat blood pressures after patient arrived on the medical floor but without additional medications had improved down to 143/60. Heart rate was still bradycardic. Electrolyte panel and CBC were reviewed and or unremarkable except for hyperglycemia. The patient states that she ?used to have diabetes?. Her glucoses have been controlled since she had weight loss surgery. Will check an A1c with a.m. labs. Patient has been admitted as observation status. 12/30/2022 interval history: 77-year-old female with history gastric bypass surgery in 2012 presented with complaint of nausea vomiting and dizziness, CTA head showed showed some stenosis and MRI of the head is pending to further evaluate will do cardiac echo pending, also patient vitamin B12 is significantly low will supplement and will start the patient on banana bag as patient may be depleted and vitamin due to gastric bypass surgery, will have a PT OT evaluate the patient, patient be seen by neurologist and further recommendation to follow Subjective Date/time seen: 12/30/22 12:48 Interval history: Dizziness Narrative: 77-year-old female with a past medical history of depression, vitamin-D deficiency, essential hypertension and vertigo presented to the ER with symptoms of vertigo.? The patient reports that this is her 3rd episode of vertigo since September.? The 1st episode was went to a your infection which she reports after she received finished her antibiotics her vertigo resolved.? The 2nd episode occurred at home and she ?toughed it out? and did not come in for evaluation.? She reports that today she was doing laundry and had bent down to pull close o
[2022-12-30] MEDS: ACETAMINOPHEN 325 MG TABLET 650 MG PO (16:36)
[2022-12-30] MEDS: traZODone HCL 50 MG TABLET PO (20:34)
[2022-12-30] MEDS: GABAPENTIN 300 MG CAPSULE PO (20:34)
[2022-12-31] VITALS: PULSE 58
[2022-12-31 04:00] VITALS: PULSE 55
[2022-12-31 05:12] VITALS: BP 150/85; PULSE 64; RESP 16; TEMP 36.6; O2SAT 97
[2022-12-31 05:54] LABS: Hematocrit 34.7 % (37.0-47.0); Hemoglobin 11.5 g/dL (12.0-15.0); Mean Corpuscular HGB Conc 33.1 g/dl (32-36); Mean Corpuscular Hemoglobin 32.6 pg (26-34); Mean Corpuscular Volume 98.3 fl (80-100); Platelet Count Result 107 k/mm3 (150-375); Red Blood Count 3.53 M/mm3 (4.2-5.4); Red Cell Distribution Width 12.7 % (11.5-14.5); White Blood Count 4.9 K/mm3 (4.5-10.0)
[2022-12-31 06:02] LABS: Anion Gap 3 mmol/L (8-16); Blood Urea Nitrogen 11 mg/dL (7-17); Calcium 8.2 mg/dL (8.4-10.2); Carbon Dioxide 33 mmol/L (22-30); Chloride 104 mmol/L (98-107); Estimated CRCL calculation 65 ml/min; Estimated Glomerular Filt Rate > 60; Glucose 89 mg/dL (65-110); Magnesium 2.3 mg/dL (1.6-2.3); Potassium 3.9 mmol/L (3.4-5.0); Sodium 140 mmol/L (137-145)
[2022-12-31 08:00] VITALS: PULSE 54
[2022-12-31] MEDS: CLOPIDOGREL BISULFATE 75 MG TABLET PO (09:47)
[2022-12-31] MEDS: DULoxetine HCL 60 MG CAPSULE.DR 120 MG PO (09:47)
[2022-12-31] MEDS: buPROPion HCL XL (24 HR) 150 MG TABCR PO (09:47)
--- NOTE | 2022-12-31 11:33 | WPDNEURCNPN ---
Assessment and Plan Assessment and plan (1) Vertebral basilar insufficiency: Code(s): G45.0 - Vertebro-basilar artery syndrome Status: Acute (2) TIA (transient ischemic attack): Code(s): G45.9 - Transient cerebral ischemic attack, unspecified Status: Acute Plan 1. Posterior circulation TIA with documented abnormal CTA with cross circulation and anterior to posterior circulation patient receiving clopidogrel 75 mg daily will add the aspirin 81 mg daily as well discussed with the family with further vascular consult at the neurosurgical service and if no further intervention are planned treatment will be continued as such if the symptomatology recurs she might benefit from the anticoagulation therapy as well Consult date: 12/31/22 HPI: Anahi Stein is a 77 year old female Admitted to the hospital through the emergency room for the complaints of generalized weakness with dizziness she was brought to the emergency room by the EMS for the complaints of nausea vomiting dizziness of 4 hours duration and will information the symptomatology hit her all at once while she was doing laundry at that time room was reportedly spanning but she had several episodes of vomiting and retching. She had no associated abdominal pain and no history of GI symptomatology or general symptomatology such as fever or chills she has history of benign paroxysmal positional vertigo in September and improved after the p.o. medications. Her other medications include bupropion 150 mg Q 24 hours, duloxetine 120 mg daily, gabapentin 300 mg q.i.d., propranolol 120 mg daily, and trazodone 50 mg at night. She is allergic to codeine and sulfa also she does have a history of hypertension and current alcohol intake with 7 drinks per week but never a smoker. Evaluation in the Emergency Room documented the normal vital signs, normal CBC with platelet count 116, normal BMP except blood sugar of 174 negative EKG for atrial fibrillation but there was sinus bradycardia with rate of 54, head neck CTA documented is small atherosclerotic plaque with 0% stenosis of both right and left carotid bulb and distal arteries but segmental occlusion of the dominant left vertebral artery with small right vertebral artery supplying the basal artery where these additional mild multifocal stenosis but however relatively large caliber right posterior communicating artery which likely supplying collateral flow from the anterior circulation to the posterior circulation. Echocardiogram has already been done which only revealed left atrial chamber dimension mildly enlarged with mild aortic valve sclerosis and trace mitral valve regurgitation but mild to moderate tricuspid valve regurgitation also no pulmonary hypertension. Review of Systems Review of Systems: All systems reviewed & are unremarkable except as noted in HPI and below PMFSH Past Medical History Medical History (Updated 12/31/22 @ 11:44 by Saman Gilman MD) Depression with anxiety Diet-controlled type 2 diabetes mellitus Essential hypertension Hepatic steatosis Leiomyosarcoma of uterus (2014) Obstructive sleep apnea Peripheral neuropathy Surgical History Surgical History (Updated 12/30/22 @ 05:08 by Anisha De La Torre DO) History of gastric bypass (2012) History of total hysterectomy with bilateral salpingo-oophorectomy (BSO) (2014) Port-A-Cath in place (2015) Right chest Family History Family History (Updated 12/30/22 @ 04:59 by Anisha De La Torre DO) Father Cerebrovascular accident, Onset Age: 72 Social History Social History (Updated 12/30/22 @ 05:12 by Anisha De La Torre DO) Social History: As of 12/30/2022: She has been since 2014. The patient had to move in with her son when she had COVID in May 2020. She had a prolonged course with [employer] and subsequently had to move in with her son. Since that time she now ambulates with a walker. She is looking forward to moving up into her own
[2022-12-31 12:00] VITALS: PULSE 61
--- NOTE | 2022-12-31 13:08 | PCPTNOTE ---
On 12/31/22, the student, [Jessica Martinez], provided care and completed [facility] documentation on this patient. I have reviewed the student's documentation and agree with the findings.
--- NOTE | 2022-12-31 13:43 | PM.DS ---
DS: Admitting Diagnosis Discharge Date 12/31/2022 Admitting Diagnosis Dizziness DS: Discharge Diagnosis Discharge Diagnosis (1) Vertebral basilar insufficiency: Code(s): G45.0 - Vertebro-basilar artery syndrome Status: Acute (2) Vertigo: Code(s): R42 - Dizziness and giddiness Status: Acute (3) HTN (hypertension): Qualifiers: Hypertension type: unspecified Qualified Code(s): I10 - Essential (primary) hypertension Code(s): I10 - Essential (primary) hypertension Status: Acute (4) Hyperglycemia: Code(s): R73.9 - Hyperglycemia, unspecified Status: Acute (5) Bradycardia, drug induced: Code(s): R00.1 - Bradycardia, unspecified; T50.905A - Adverse effect of unspecified drugs, medicaments and biological substances, initial encounter Status: Acute (6) Thrombocytopenia: Code(s): D69.6 - Thrombocytopenia, unspecified Status: Acute Plan The patient is having intractable vertigo in this is likely secondary to central cause given the patient's vertebral artery insufficiency. She has been admitted to the hospital for observation and further evaluation to rule out acute CVA due to her vertebral artery insufficiency. She was started on Plavix in the ER this will be continued. Neurology has been consulted. She will receive p.r.n. medications for nausea and vertigo. Will check a lipid panel with a.m. labs. She does have a history of essential hypertension. She was seen in the ER in September for vertigo symptoms at that time and had markedly uncontrolled blood pressures documented ranging between 180 and 200 systolic. Her blood pressures are comparable today. This is likely multifactorial due to her essential hypertension complicated by the patient not being Eloise take her home antihypertensives due to vertigo and vomiting. However, there is likely some secondary hypertension due to her possible CVA and vertebral insufficiency. Will allow for permissive hypertension due to possibility of CVA. However will provide hydralazine as needed for systolic blood pressures greater than 180. His sirs also possibility of patient having symptoms due to hypertensive urgency. Will continue to hold the patient's home propranolol due to bradycardia. Since the patient is bradycardic and she has not had her blood pressure medications in 24 hours. Addendum: Repeat blood pressures after patient arrived on the medical floor but without additional medications had improved down to 143/60. Heart rate was still bradycardic. Electrolyte panel and CBC were reviewed and or unremarkable except for hyperglycemia. The patient states that she ?used to have diabetes?. Her glucoses have been controlled since she had weight loss surgery. Will check an A1c with a.m. labs. Patient has been admitted as observation status. 12/30/2022 interval history: 77-year-old female with history gastric bypass surgery in 2012 presented with complaint of nausea vomiting and dizziness, CTA head showed showed some stenosis and MRI of the head is pending to further evaluate will do cardiac echo pending, also patient vitamin B12 is significantly low will supplement and will start the patient on banana bag as patient may be depleted and vitamin due to gastric bypass surgery, will have a PT OT evaluate the patient, patient be seen by neurologist and further recommendation to follow DS: Summary Hospital Course Reason for hospitalization: Chief Complaint: Dizziness Narrative: 77-year-old female with a past medical history of depression, vitamin-D deficiency, essential hypertension and vertigo presented to the ER with symptoms of vertigo.? The patient reports that this is her 3rd episode of vertigo since September.? The 1st episode was went to a your infection which she reports after she received finished her antibiotics her vertigo resolved.? The 2nd episode occurred at home and she ?toughed it out? and did not come
[2022-12-31 16:00] VITALS: PULSE 73
== END 2022-12-31 16:32 | disposition home or self-care (01) ==
LOC: ANHED 19:27 → ANH3MED 12-30 15:23
PROVIDERS: Admitting Provider Internal Medicine; Emergency Provider Physician Assistant; Visit Provider Family Medicine
DX: G45.0 Vertebro-basilar artery syndrome (principal); I10 Essential (primary) hypertension; E11.65 Type 2 diabetes mellitus with hyperglycemia; E11.42 Type 2 diabetes mellitus with diabetic polyneuropathy; R00.1 Bradycardia, unspecified; H81.10 Benign paroxysmal vertigo, unspecified ear; D69.6 Thrombocytopenia, unspecified; F48.1 Depersonalization-derealization syndrome; E55.9 Vitamin D deficiency, unspecified; K76.0 Fatty (change of) liver, not elsewhere classified; I08.2 Rheumatic disorders of both aortic and tricuspid valves; G47.33 Obstructive sleep apnea (adult) (pediatric); F10.90 Alcohol use, unspecified, uncomplicated; Z98.84 Bariatric surgery status; Z79.899 Other long term (current) drug therapy
CPT/HCPCS: 36415; 70496; 70498; 70553; 80048; 80053; 80061; 82607; 82746; 83036; 83690; 83735; 84425; 84443; 84484; 85025; 85027; 85055; 93005; 93306; 96361; 96365; 96366; 96372; 96374; 96375; 97161; 97165; 99285; A9270; A9577; G0378; J2405; J3411; J3420; J3475; J7030; J7120; Q9967